=== PATIENT | female | born 1995 | race Two or more races ===

== ENCOUNTER 2019-07-13 10:29 | Emergency (ER) | payer OTHER, SELFPAY ==
[2019-07-13 10:40] VITALS: BP 127/77; PULSE 105; RESP 16; TEMP 36.9; O2SAT 100
--- NOTE | 2019-07-13 11:06 | ED.URI ---
HPI - URI/Sore Throat General Chief Complaint: Upper Respiratory Infection Stated Complaint: sore throat/mucus/body aches/chills Time Seen by Provider: 07/13/19 11:18 Source: patient and RN notes reviewed Mode of arrival: ambulatory Limitations: no limitations History of Present Illness HPI Narrative: 24-year-old female presents with sore throat, body aches, cough, chest congestion that started yesterday. Reports exposure to flu at work. Denies taking any medicines for her symptoms. MD elicited complaint: sore throat Related Data Allergies Allergy/AdvReac Type Severity Reaction Status Date / Time No Known Allergies Allergy Verified 07/13/19 10:39 Review of Systems Review of Systems: Narrative: CONSTITUTIONAL: Reports malaise, chills, sweats, fever. EYES: Denies visual changes, redness, or discharge. ENT: Reports rhinorrhea, congestion, sore throat. Denies sinus pain, otalgia. CARDIOVASCULAR: Denies chest pain, palpitations, or edema. RESPIRATORY: Reports cough, chest congestion. Denies dyspnea. GASTROINTESTINAL: Denies abdominal pain, nausea, vomiting, diarrhea SKIN: Denies rash or itching. MUSCULOSKELETAL: Reports myalgia. NEUROLOGIC: Denies headache. All systems reviewed & are unremarkable except as noted in HPI and below PMFSH Family History Family History (Updated 03/31/18 @ 12:55 by DOCTOR UNKNOWN) Grandparent Diabetes mellitus Family history of malignant neoplasm Mother Diabetes mellitus Father Family history of migraine headaches Family history of headache disorder Social History Social History Smoking status: Never smoker Comments At time of signature, agree with nursing past medical, surgical, social and family history. There is no relevant family history pertinent to the presenting complaint Exam Narrative: Exam Narrative: GENERAL: Well-appearing, well-nourished, and in no acute distress. HEAD: Normocephalic, atraumatic. EYES: PERRLA, conjunctivae clear, and EOMI. ENT: Nares clear, turbinates erythematous, clear discharge. Mucous membranes moist. TM pearly nieto with dull light reflex bilaterally; no tragal tenderness. Oropharynx erythematous without lesions. Tonsils not enlarged and without exudate, no drooling, no hoarseness, no trismus. NECK: Supple. No lymphadenopathy CHEST: Clear to auscultation, breath sounds equal. No wheezing, rhonchi, rales, or stridor. No respiratory distress, speaks in full sentences. HEART: Regular rate and rhythm. No murmur heard. Normal peripheral pulses. SKIN: Warm, dry, no rash. NEURO: Alert and oriented x3. PSYCH: Normal mood and affect Course Course Emergency Course: Patient is aware of diagnosis, understands and agrees to treatment plan. Anticipatory guidance given. Patient agrees to follow-up as directed and is aware of reasons to seek care at the emergency department. Portions of this record may have been created with voice recognition software Vital Signs Vital signs: Vital Signs Temperature 98.5 F 07/13/19 10:40 Pulse Rate 105 H 07/13/19 10:40 Respiratory Rate 16 07/13/19 10:40 Blood Pressure 127/77 07/13/19 10:40 Pulse Oximetry 100 07/13/19 10:40 Temperature 98.5 F 07/13/19 10:40 Pulse Rate 105 H 07/13/19 10:40 Respiratory Rate 16 07/13/19 10:40 Blood Pressure 127/77 07/13/19 10:40 Pulse Oximetry 100 07/13/19 10:40 Reviewed. MDM - URI/Sore Throat MDM Narrative Medical decision making narrative: Differential diagnosis considered: Strep pharyngitis, allergic rhinitis, upper respiratory tract infection, sinusitis, rhinosinusitis, nasopharyngitis. viral pharyngitis, otitis media, otitis externa, pneumonia, bronchitis, viral cough syndrome, viral syndrome, and influenza. Exam findings show no acute concerns or changes; patient is non-toxic appearing and is in no distress. Patient is appropriate for outpatient treatment and follow-up. Lab Data Attestation: I reviewed the patient's lab results. Labs: Influenza
== END 2019-07-13 11:20 | disposition home or self-care (01) ==
PROVIDERS: Emergency Provider Nurse Practitioner; PCP Family Medicine
DX: J10.1 Influenza due to other identified influenza virus with other respiratory manifestations (principal)
CPT/HCPCS: 87804; 99213; G0463

== ENCOUNTER 2021-11-18 12:14 | Outpatient (CLI) | payer SELFPAY ==
--- NOTE | 2021-11-18 | ECG_ITS ---
Measurements Intervals [place] Rate: 63 P: -11 GA: 152 QRS: 56 QRSD: 89 T: 15 QT: 386 QTc: 397 Interpretive Statements SINUS RHYTHM NO PREVIOUS ECG AVAILABLE FOR COMPARISON Electronically Signed On 11-18-2021 22:15:30 CDT by Shawna Yanez M.D.
== END 2021-11-18 12:15 | disposition home or self-care (01) ==
PROVIDERS: PCP Family Medicine; Visit Provider Emergency Medicine
DX: Z01.818 Encounter for other preprocedural examination (principal)
CPT/HCPCS: 93005